=== PATIENT | female | born 1985 | race African-American/Black ===

== ENCOUNTER 2022-10-21 11:26 | Emergency (ER) | payer MEDICAID ==
[~2022-10-21] VITALS: Ht 167.6 cm; Wt 97.0 kg
[2022-10-21 11:36] VITALS: BP 154/116
[2022-10-21] MEDS ORDERED: ACETAMINOPHEN 325MG TABLET PO ONE (12:00)
[2022-10-21] MEDS ORDERED: IBUP-2029 MT (13:39)
[2022-10-21] MEDS ORDERED: LIDO700A15 TP (13:39)
== END 2022-10-21 13:57 | disposition home or self-care (01) ==
LOC: ER 11:26
DX: R07.81 Pleurodynia (principal); Z88.0 Allergy status to penicillin
CPT/HCPCS: 71100; 99283